=== PATIENT | male | born 1980 | race African-American/Black ===

== ENCOUNTER 2017-06-14 15:31 | Emergency (ER) | payer MEDICAID ==
[2017-06-14] MEDS ORDERED: ONDANSETRON 4 MG/2 ML VIAL IVP ONE (15:44)
[2017-06-14] MEDS ORDERED: NS 1,000 ML IV ONE (15:44)
[2017-06-14] MEDS ORDERED: HYDROmorphONE/DILAUDID 1 MG/ML SYR IVP ONE (15:44)
[2017-06-14 15:45] VITALS: RESP 16
--- NOTE | 2017-06-14 15:48 | EDPHY ---
H & P Stated Complaint: bug bites and abd tenderness. x3 days Time Seen by Provider: 06/14/17 15:40 HPI/ROS: CHIEF COMPLAINT: Abdominal pain HISTORY OF PRESENT ILLNESS: The patient is a otherwise healthy 37-year-old man who comes to the emergency department complaining of abdominal pain. He states that he 1st noticed a bug bite to his left flank and another 1 to his left side abdomen 3 days ago. He then developed left lower quadrant pain and swelling and erythema 2 days ago as well as fever. He denies any IV drug use or immuno compromising conditions. He does take oxycodone for chronic back pain. REVIEW OF SYSTEMS: Constitutional: denies: chills, fever, recent illness, recent injury EENTM: denies: blurred vision, double vision, nose congestion Respiratory: denies: cough, shortness of breath Cardiac: denies: chest pain, irregular heart rate, lightheadedness, palpitations Gastrointestinal/Abdominal: denies: abdominal pain, diarrhea, nausea, vomiting, blood streaked stools Genitourinary: denies: dysuria, frequency, hematuria, pain Musculoskeletal: denies: joint pain, muscle pain Skin: See HPI Neurological: denies: headache, numbness, paresthesia, tingling, dizziness, weakness Hematologic/Lymphatic: denies: blood clots, easy bleeding, easy bruising Immunologic/allergic: denies: HIV/AIDS, transplant EXAM: GENERAL: Mild distress, tearful HEAD: Atraumatic, normocephalic. EYES: Pupils equal round and reactive to light, extraocular movements intact, sclera anicteric, conjunctiva are normal. ENT: TMs normal, nares patent, oropharynx clear without exudates. Moist mucous membranes. NECK: Normal range of motion, supple without lymphadenopathy or JVD. LUNGS: Breath sounds clear to auscultation bilaterally and equal. No wheezes rales or rhonchi. HEART: Regular rate and rhythm without murmurs, rubs or gallops. ABDOMEN: Nontender except over cellulitic area BACK: No CVA tenderness, no spinal tenderness, step-offs or deformities EXTREMITIES: Normal range of motion, no pitting or edema. No clubbing or cyanosis. NEUROLOGICAL: Cranial nerves II through XII grossly intact. Normal speech, normal gait. 5/5 strength, normal movement in all extremities, normal sensation PSYCH: Normal mood, normal affect. SKIN: Draining abscess to left CVA and left flank and phlegmon versus abscess/ cellulitis left lower quadrant inguinal region that is very tender. Source: Patient Exam Limitations: No limitations - Personal History Current Tetanus Diphtheria and Acellular Pertussis (TDAP): Yes - Medical/Surgical History Hx Asthma: No Hx Chronic Respiratory Disease: No Hx Diabetes: No Hx Cardiac Disease: No Hx Renal Disease: No Other PMH: chronic pain. back and knee surg - Family History Significant Family History: No pertinent family hx - Social History Smoking Status: Current some day smoker Alcohol Use: Sober Drug Use: None Constitutional: Initial Vital Signs Temperature (C) 38.2 C 06/14/17 15:40 Heart Rate 99 06/14/17 15:40 Respiratory Rate 16 06/14/17 15:40 Blood Pressure 134/78 H 06/14/17 15:40 O2 Sat (%) 96 06/14/17 15:40 O2 Delivery Mode Room Air Allergies/Adverse Reactions: No Known Allergies Allergy (Unverified 06/14/17 15:42) Home Medications: Medication Instructions Recorded Oxycodone HCl ER 06/14/17 Medical Decision Making - Diagnostics Imaging Results: Imaging Impressions Abdomen CT 06/14/17 15:44 Impression: 1. Extensive cellulitis/phlegmon involving the deep subcutaneous soft tissues throughout the left side of the abdomen and pelvis anterolaterally without extension intra-abdominally or into the rectus abdominis muscles. 2. No drainable abscess. 3. Mild constipation. 4. No appendicitis, intra-abdominal fluid collection, hepatic abscess, urinary tract obstruction, or bowel obstruction. Findings and recommendations discussed with Emergency Department physician, Sergo Julio at 1730 hour, 06/14/2017. Final report concurs with initial preliminary interpretation. ED Course/Re-evaluation: 5:00 p.m. the patient refused CT scan and states that he is feeling better with antibiotics and wants to go home. I talked him into it. We discussed that he is septic and may have a deep space infection. 6:10 p.m. the patient is feeling much better. We discussed the CT results. The abscesses on his back and side have drained previously. He states that he has got pus out of them at home. We did send a swab of the ulcer . He has a phlegmon in his right lower abdomen/inguinal region. No fasciitis on CT scan. No crepitus on exam. Has fever has improved. I recommended admission strongly but the patient refuses. He states that he is very important meeting at 9:00 a.m. and will return after that for repeat vancomycin dosing or possibly admission. Differential Diagnosis: Partial list of the Differential diagnosis considered include but were not limited to; sepsis, cellulitis, phlegmon, abscess and although unlikely based on the history and physical exam, I also considered septic shock, fasciitis, intra-abdominal abscess, diverticulitis, hernia. I discussed these differential diagnoses and the plan with the patient as well as the usual and expected course. The patient understands that the diagnosis is provisional and that in medicine we are not always correct and that further workup is often warranted. Usual and customary warnings were given. All of the patient's questions were answered. The patient was instructed to return to the emergency department should the symptoms at all worsen or return, otherwise to followup with the physician as we discussed. - Data Points Laboratory Results: Laboratory Results 06/14/17 16:10 06/14/17 16:10 06/14/17 06/14/17 06/14/17 17:00 16:10 16:10 WBC RBC Hgb Hct MCV MCH MCHC RDW Plt Count MPV Neut % (Auto) Lymph % (Auto) [place] % (Auto) Eos % (Auto) Baso % (Auto) Nucleat RBC Rel Count Absolute Neuts (auto) Absolute Lymphs (auto) Absolute Monos (auto) Absolute Eos (auto) Absolute Basos (auto) Absolute Nucleated RBC Immature Gran % Immature Gran # PT 14.9 SEC SEC (12.0-15.0) INR 1.20 H (0.83-1.16) APTT 28.6 SEC SEC (23.0-38.0) VBG Lactic Acid Sodium 137 mEq/L mEq/L (134-144) Potassium 4.2 mEq/L mEq/L (3.5-5.2) Chloride 100 mEq/L mEq/L (97-110) Carbon Dioxide 24 mEq/l mEq/l (22-31) Anion Gap 13 mEq/L mEq/L (8-16) BUN 11 mg/dL mg/dL (7-23) Creatinine 1.0 mg/dL mg/dL (0.7-1.3) Estimated GFR > 60 Glucose 117 mg/dL H mg/dL (70-100) Calcium 9.0 mg/dL mg/dL (8.5-10.4) Total Bilirubin 0.9 mg/dL mg/dL (0.1-1.4) Conjugated Bilirubin 0.3 mg/dL mg/dL (0.0-0.5) Unconjugated Bilirubin 0.6 mg/dL mg/dL (0.0-1.1) AST 28 IU/L IU/L (17-59) ALT 32 IU/L IU/L (21-72) Alkaline Phosphatase 71 IU/L IU/L (38-126) Total Protein 6.8 g/dL g/dL (6.3-8.2) Albumin 3.8 g/dL g/dL (3.5-5.0) Lipase 25 IU/L IU/L (23-300) Urine Color YELLOW Urine Appearance HAZY Urine pH 6.0 (5.0-7.5) Ur Specific [place] 1.010 (1.002-1.030) Urine Protein NEGATIVE (NEGATIVE) Urine Ketones NEGATIVE (NEGATIVE) Urine Blood NEGATIVE (NEGATIVE) Urine Nitrate NEGATIVE (NEGATIVE) Urine Bilirubin NEGATIVE (NEGATIVE) Urine Urobilinogen 0.2 EU EU (0.2-1.0) Ur Leukocyte Esterase NEGATIVE (NEGATIVE) Urine Glucose NEGATIVE (NEGATIVE) 06/14/17 06/14/17 16:10 16:10 WBC 21.37 10^3/uL H 10^3/uL (3.80-9.50) RBC 6.02 10^6/uL 10^6/uL (4.40-6.38) Hgb 14.7 g/dL g/dL (13.7-17.5) Hct 43.2 % % (40.0-51.0) MCV 71.8 fL L fL (81.5-99.8) MCH 24.4 pg L pg (27.9-34.1) MCHC 34.0 g/dL g/dL (32.4-36.7) RDW 13.2 % % (11.5-15.2) Plt Count 225 10^3/uL 10^3/uL (150-400) MPV 10.0 fL fL (8.7-11.7) Neut % (Auto) 87.2 % H % (39.3-74.2) Lymph % (Auto) 5.8 % L % (15.0-45.0) [place] % (Auto) 6.2 % % (4.5-13.0) Eos % (Auto) 0.2 % L % (0.6-7.6) Baso % (Auto) 0.1 % L % (0.3-1.7) Nucleat RBC Rel Count 0.0 % % (0.0-0.2) Absolute Neuts (auto) 18.62 10^3/uL H 10^3/uL (1.70-6.50) Absolute Lymphs (auto) 1.24 10^3/uL 10^3/uL (1.00-3.00) Absolute Monos (auto) 1.32 10^3/uL H 10^3/uL (0.30-0.80) Absolute Eos (auto) 0.05 10^3/uL 10^3/uL (0.03-0.40) Absolute Basos (auto) 0.03 10^3/uL 10^3/uL (0.02-0.10) Absolute Nucleated RBC 0.00 10^3/uL 10^3/uL (0-0.01) Immature Gran % 0.5 % % (0.0-1.1) Immature Gran # 0.11 10^3/uL H 10^3/uL (0.00-0.10) PT INR APTT VBG Lactic Acid 1.2 mmol/L mmol/L (0.7-2.1) Sodium Potassium Chloride Carbon Dioxide Anion Gap BUN Creatinine Estimated GFR Glucose Calcium Total Bilirubin Conjugated Bilirubin Unconjugated Bilirubin AST ALT Alkaline Phosphatase Total Protein Albumin Lipase Urine Color Urine Appearance Urine pH Ur Specific [place] Urine Protein Urine Ketones Urine Blood Urine Nitrate Urine Bilirubin Urine Urobilinogen Ur Leukocyte Esterase Urine Glucose Medications Given: Discontinued Medications Acetaminophen (Tylenol) 1,000 mg PO EDNOW ONE Stop: 06/14/17 16:29 Last Admin: 06/14/17 16:44 Dose: 1,000 mg Hydromorphone HCl (Dilaudid) 1 mg IVP EDNOW ONE Stop: 06/14/17 15:45 Last Admin: 06/14/17 16:09 Dose: 1 mg Sodium Chloride (Ns) 1,000 mls @ 0 mls/hr IV EDNOW ONE; Wide Open PRN Reason: Protocol Stop: 06/14/17 15:45 Last Admin: 06/14/17 16:05 Dose: 1,000 mls Sodium Chloride (Ns) 2,200 mls @ 4,400 mls/hr 30 ml/kg infuse over 30 min ( 2200 ml) IV EDNOW ONE PRN Reason: Protocol Stop: 06/14/17 16:56 Last Admin: 06/14/17 16:43 Dose: 2,200 mls Vancomycin HCl 1 gm/ Sodium (Chloride) 250 mls @ 250 mls/hr IV EDNOW ONE PRN Reason: Protocol Stop: 06/14/17 17:27 Last Admin: 06/14/17 16:50 Dose: 250 mls Ondansetron HCl (Zofran) 4 mg IVP EDNOW ONE Stop: 06/14/17 15:45 Last Admin: 06/14/17 16:09 Dose: 4 mg Departure - Departure Disposition: Home, Routine, Self-Care Clinical Impression: Abscess Cellulitis Qualifiers: Site of cellulitis: trunk Site of cellulitis of trunk: abdominal wall Qualified Code(s): L03.311 - Cellulitis of abdominal wall Sepsis Qualifiers: Sepsis type: sepsis due to unspecified organism Qualified Code(s): A41.9 - Sepsis, unspecified organism Condition: Fair Instructions: Cellulitis (ED), Abscess (ED) Additional Instructions: You very serious skin infection. Return in 12 hours for repeat vancomycin dosing. If you feel worse or your fever is uncontrolled return immediately to the emergency department. Referrals: NONE *PRIMARY CARE P,. [Primary Care Provider] - As per Instructions Louise Simons DO [Doctor of Osteopathy] - As per Instructions ED,PHYSICIAN ONNOHEMY [Medical Doctor] - As per Instructions
[2017-06-14] MEDS ORDERED: IOPAMIDOL (ISOVUE-300) 100 ML BTL ONE (15:54)
[2017-06-14 16:20] LABS: % IMMATURE GRANULYOCYTES 0.5 % (0.0-1.1); ABSOLUTE IMMATURE GRANULOCYTES 0.11 10^3/uL (0.00-0.10); ADD DIFF? NO; ADD MORPH? NO; ADD SCAN? NO; ATYPICAL LYMPHOCYTE FLAG 0 (0-99); FRAGMENT RBC FLAG 0 (0-99); HEMATOCRIT 43.2 % (40.0-51.0); HEMOGLOBIN 14.7 g/dL (13.7-17.5); LEFT SHIFT FLG 10 (0-99); LIPEMIA HEMOLYSIS FLAG 90 (0-99); MEAN CELL HEMOGLOBIN 24.4 pg (27.9-34.1); MEAN CELL VOLUME 71.8 fL (81.5-99.8); PLATELET CLUMPS FLAG 0 (0-99); PLATELET COUNT 225 10^3/uL (150-400); RED BLOOD CELL COUNT 6.02 10^6/uL (4.40-6.38); RED CELL DISTRIBUTION WIDTH 13.2 % (11.5-15.2)
[2017-06-14] MEDS ORDERED: NS 2,200 ML IV ONE (16:27)
[2017-06-14] MEDS ORDERED: VANCOMYCIN 1 GM in NS 250 ML IV ONE (16:28)
[2017-06-14] MEDS ORDERED: ACETAMINOPHEN 500 MG TAB PO ONE (16:28)
[2017-06-14 16:34] LABS: APTT 28.6 SEC (23.0-38.0); INR 1.2 (0.83-1.16); PROTIME(PATIENT) 14.9 SEC (12.0-15.0)
[2017-06-14 16:36] LABS: ALANINE AMINOTRANSFERASE 32 IU/L (21-72); ALBUMIN 3.8 g/dL (3.5-5.0); ALKALINE PHOSPHATASE 71 IU/L (38-126); ANION GAP 13 mEq/L (8-16); ASPARTATE AMINOTRANSFERASE 28 IU/L (17-59); BILIRUBIN,TOTAL 0.9 mg/dL (0.1-1.4); BILIRUBIN-CONJUGATED 0.3 mg/dL (0.0-0.5); BILIRUBIN-UNCONJUGATED 0.6 mg/dL (0.0-1.1); CARBON DIOXIDE 24 mEq/l (22-31); CHLORIDE 100 mEq/L (97-110); GLOMERULAR FILTRATION RATE > 60; GLUCOSE 117 mg/dL (70-100); POTASSIUM 4.2 mEq/L (3.5-5.2); SODIUM 137 mEq/L (134-144); TOTAL PROTEIN 6.8 g/dL (6.3-8.2)
[2017-06-14 17:07] LABS: COLOR YELLOW; LEUKOCYTE ESTERASE,URINE NEGATIVE (NEGATIVE); NITRITE,URINE NEGATIVE (NEGATIVE)
[2017-06-14 17:57] VITALS: BP 108/58; PULSE 66; TEMP 99; O2SAT 98
== END 2017-06-14 18:34 | disposition home or self-care (01) ==
LOC: CED 15:31
DX: A41.9 Sepsis, unspecified organism (principal); L03.311 Cellulitis of abdominal wall; L02.211 Cutaneous abscess of abdominal wall; F17.200 Nicotine dependence, unspecified, uncomplicated; E86.9 Volume depletion, unspecified
CPT/HCPCS: 74177-PO; 80048-PO; 80076-PO; 81003-PO; 82247-PO; 83605-PO; 83690-PO; 85025-PO; 85610-PO; 85730-PO; 96365; J1170; J2405; J3370; Q9967

== ENCOUNTER 2017-06-15 09:30 | Emergency (ER) | payer MEDICAID ==
[2017-06-15 09:49] VITALS: RESP 18
--- NOTE | 2017-06-15 10:15 | EDPHY ---
H & P Stated Complaint: CELLULITIS WITH REPEAT ABX HPI/ROS: Chief Complaint: Cellulitis HPI: 36-year-old male who is seen emergency department yesterday afternoon with a very large cellulitis in his left lower abdominal wall/inguinal region. Patient had a CT scan at that time which did not show any fluid collections or deep space involvement. He received a dose of IV vancomycin was instructed to return for follow-up today. Patient was noted to have a significant elevation in his white cell count at that time but he refused admission as he had important meeting his this is this morning. Patient states he is feeling better and that feels like the swelling has gone down. ROS: 10 point Review of Systems is negative except as noted in the HPI. PMH: Denies Social History: No smoking, no alcohol, no recreational drug use Family History: non-contributory Physical Exam: Gen: Awake, Alert, No Distress HEENT: Nose: no rhinorrhea Eyes: PERRLA, EOMI Mouth: Moist mucosa Neck: Supple, no JVD Chest: nontender, lungs clear to auscultation Heart: S1, S2 normal, no murmur Abd: Soft, there is a large 15 x 20 area of cellulitis with induration but no fluctuance. There are also 2 lesions in the left lateral and left flank which are approximately 2 cm. Back: no CVA tenderness, no midline tenderness Ext: no edema, non-tender Skin: no rash Neuro: CN II-XII intact, Sensation grossly intact, Strength 5/5 in bilateral upper and lower extremities - Medical/Surgical History Hx Asthma: No Hx Chronic Respiratory Disease: No Hx Diabetes: No Hx Cardiac Disease: No Hx Renal Disease: No Other PMH: chronic pain. back and knee surg - Social History Smoking Status: Current some day smoker Constitutional: Initial Vital Signs Temperature (C) 37.1 C 06/15/17 09:47 Heart Rate 92 06/15/17 09:47 Respiratory Rate 18 06/15/17 09:47 Blood Pressure 140/76 H 06/15/17 09:47 O2 Sat (%) 92 06/15/17 09:47 O2 Delivery Mode Room Air Allergies/Adverse Reactions: No Known Allergies Allergy (Unverified 06/15/17 09:47) Home Medications: Medication Instructions Recorded Oxycodone HCl ER 06/14/17 Medical Decision Making ED Course/Re-evaluation: Have had a long conversation with the patient. He still does not want to be admitted to the hospital. He states that he is feeling better. He is not febrile and has normal vital signs here. He is agreed for additional doses of antibiotics. He would like to go home given another 12 hours to see if he improves. He assures me that he will return this evening for repeat antibiotics and reassessment. At that time he has not improved he will agree to be admitted to the hospital at this time he does not want to stay. The patient is not toxic appearing at this time. I have instructed him to return for any changes immediately. He has been given 1 g of IV vancomycin here. IV was left in place. - Data Points Medications Given: Vancomycin HCl 1 gm/ Sodium (Chloride) 250 mls @ 250 mls/hr IV EDNOW ONE PRN Reason: Protocol Stop: 06/15/17 11:31 Last Admin: 06/15/17 10:38 Dose: 250 mls Discontinued Medications Vancomycin/Sodium Chloride (Vancomycin 1 Gm (Premix)) 250 mls @ 250 mls/hr IV EDNOW ONE PRN Reason: Protocol Stop: 06/15/17 11:15 Last Admin: 06/15/17 10:34 Dose: Not Given Departure - Departure Disposition: Home, Routine, Self-Care Clinical Impression: Cellulitis Condition: Fair Instructions: Cellulitis (ED) Additional Instructions: Return to the emergency department in 12 hours for re-evaluation and repeat IV antibiotics. Return sooner for spreading of the redness in your abdomen, fevers, chills, weakness, or any other concerns.
[2017-06-15] MEDS ORDERED: VANCOMYCIN HCL/NORMAL SALINE 250 ML IV ONE (10:16)
[2017-06-15] MEDS ORDERED: VANCOMYCIN 1 GM/NS 250 ML BAG IV ONE (10:26)
[2017-06-15] MEDS ORDERED: VANCOMYCIN 1 GM VIAL ONE (10:27)
[2017-06-15] MEDS ORDERED: VANCOMYCIN 1 GM in NS 250 ML IV ONE (10:32)
[2017-06-15 11:54] VITALS: BP 130/70; PULSE 82; TEMP 98.6; O2SAT 98
== END 2017-06-15 11:57 | disposition home or self-care (01) ==
LOC: CED 09:30
DX: L03.311 Cellulitis of abdominal wall (principal); F17.200 Nicotine dependence, unspecified, uncomplicated
CPT/HCPCS: 96365; J3370

== ENCOUNTER 2017-06-15 23:00 | Observation (INO) | payer MEDICAID ==
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
[2017-06-16 00:15] LABS: % IMMATURE GRANULYOCYTES 0.5 % (0.0-1.1); ABSOLUTE IMMATURE GRANULOCYTES 0.08 10^3/uL (0.00-0.10); ADD DIFF? NO; ADD MORPH? NO; ADD SCAN? NO; ATYPICAL LYMPHOCYTE FLAG 10 (0-99); FRAGMENT RBC FLAG 0 (0-99); HEMATOCRIT 38.7 % (40.0-51.0); HEMOGLOBIN 13.2 g/dL (13.7-17.5); LEFT SHIFT FLG 0 (0-99); LIPEMIA HEMOLYSIS FLAG 90 (0-99); MEAN CELL HEMOGLOBIN 24.6 pg (27.9-34.1); MEAN CELL HEMOGLOBIN CONCENTR. 34.1 g/dL (32.4-36.7); MEAN CELL VOLUME 72.2 fL (81.5-99.8); MEAN PLATELET VOLUME 10.3 fL (8.7-11.7); PLATELET CLUMPS FLAG 0 (0-99); PLATELET COUNT 214 10^3/uL (150-400); RED BLOOD CELL COUNT 5.36 10^6/uL (4.40-6.38); RED CELL DISTRIBUTION WIDTH 13.2 % (11.5-15.2)
[2017-06-16] MEDS ORDERED: NS 1,000 ML IV SCH ×2 (00:15→03:00)
[2017-06-16 00:27] LABS: ANION GAP 14 mEq/L (8-16); CALCIUM 9.1 mg/dL (8.5-10.4); CARBON DIOXIDE 25 mEq/l (22-31); CHLORIDE 101 mEq/L (97-110); CREATININE 0.9 mg/dL (0.7-1.3); GLOMERULAR FILTRATION RATE > 60; GLUCOSE 128 mg/dL (70-100); POTASSIUM 4.1 mEq/L (3.5-5.2); SODIUM 140 mEq/L (134-144)
[2017-06-16] MEDS ORDERED: OXYCODONE/APAP 5/325 TAB PO ONE (00:34)
[2017-06-16] MEDS ORDERED: NS 2,400 ML IV ONE (00:35)
[2017-06-16] MEDS ORDERED: ONDANSETRON DISINTEGRATING 4 MG TAB PO PRN (02:46)
[2017-06-16] MEDS ORDERED: ACETAMINOPHEN 325 MG TAB PO PRN (02:46)
[2017-06-16] MEDS ORDERED: ONDANSETRON 4 MG/2 ML VIAL IVP PRN (02:46)
[2017-06-16] MEDS ORDERED: oxyCODONE IR 5 MG TAB PO PRN (02:46)
[2017-06-16] MEDS ORDERED: methylPREDNISolone SOD SUCC 125 MG/2 ML VIAL IVP ONE (03:24)
--- NOTE | 2017-06-16 03:49 | PDGENHP ---
History and Physical - Chief Complaint abdominal wall pain - History of Present Illness 36yo M who originally presented to the ED 2 nights ago with abd pain and cellulitis. At that time, had an elevated WNC to >20k, and a CT scan which showed phlegmon. He left to take care of some business affairs and then re- presented today as the induration had worsened. Denies any trauma, states his pain is currently well controlled. Denies fevers and chills today although he had them 24hrs ago History Information - Allergies/Home Medication List Allergies/Adverse Reactions: ceftriaxone Allergy (Verified 06/16/17 03:28) Home Medications: Oxycodone HCl ER 06/14/17 [Last Taken Unknown] I have personally reviewed and updated: family history, medical history, social history, surgical history - Past Medical History Additional medical history: chronic pain - Surgical History Additional surgical history: back surgery - Family History Positive for: non-pertinent - Social History Smoking Status: Current some day smoker Alcohol Use: None Drug Use: Marijuana (Formerly into Cocaine. Now only MJ 1-2 times a week. Uses the Oxycodone sparingly, 2-3 x per week.) Review of Systems ROS: 10pt was reviewed & negative except for what was stated in HPI & below Physical Exam Temp Pulse Resp BP Pulse Ox 36.5 C 98 18 108/77 93 06/16/17 03:25 06/16/17 03:25 06/16/17 03:25 06/16/17 03:25 06/16/17 03:25 Constitutional: uncomfortable Eyes: PERRL, anicteric sclera, EOMI Ears, Nose, Mouth, Throat: moist mucous membranes, hearing normal, ears appear normal, no oral mucosal ulcers Cardiovascular: regular rate and rhythym, no murmur, rub, or gallop, No edema Respiratory: no respiratory distress, no rales or rhonchi, clear to auscultation Gastrointestinal: normoactive bowel sounds, tenderness, other (large amt of cellulitis with central abscess on left lower abdominal wall ) Skin: other (cellulitis on abdomen ) Musculoskeletal: full muscle strength, no muscle tenderness, normal joint ROM, no joint effusions Neurologic: AAOx3 Psychiatric: interacting appropriately, not encephalopathic, thought process linear, anxious Lymph, Heme, Immunologic: no cervical LAD, no supraclavicular LAD Lab Data & Imaging Review 06/16/17 00:08 06/16/17 00:08 WBC 16.96 10^3/uL (3.80-9.50) H 06/16/17 00:08 RBC 5.36 10^6/uL (4.40-6.38) 06/16/17 00:08 Hgb 13.2 g/dL (13.7-17.5) L 06/16/17 00:08 Hct 38.7 % (40.0-51.0) L 06/16/17 00:08 MCV 72.2 fL (81.5-99.8) L 06/16/17 00:08 MCH 24.6 pg (27.9-34.1) L 06/16/17 00:08 MCHC 34.1 g/dL (32.4-36.7) 06/16/17 00:08 RDW 13.2 % (11.5-15.2) 06/16/17 00:08 Plt Count 214 10^3/uL (150-400) 06/16/17 00:08 MPV 10.3 fL (8.7-11.7) 06/16/17 00:08 Neut % (Auto) 84.9 % (39.3-74.2) H 06/16/17 00:08 Lymph % (Auto) 7.7 % (15.0-45.0) L 06/16/17 00:08 [place] % (Auto) 5.6 % (4.5-13.0) 06/16/17 00:08 Eos % (Auto) 1.1 % (0.6-7.6) 06/16/17 00:08 Baso % (Auto) 0.2 % (0.3-1.7) L 06/16/17 00:08 Nucleat RBC Rel Count 0.0 % (0.0-0.2) 06/16/17 00:08 Absolute Neuts (auto) 14.41 10^3/uL (1.70-6.50) H 06/16/17 00:08 Absolute Lymphs (auto) 1.31 10^3/uL (1.00-3.00) 06/16/17 00:08 Absolute Monos (auto) 0.95 10^3/uL (0.30-0.80) H 06/16/17 00:08 Absolute Eos (auto) 0.18 10^3/uL (0.03-0.40) 06/16/17 00:08 Absolute Basos (auto) 0.03 10^3/uL (0.02-0.10) 06/16/17 00:08 Absolute Nucleated RBC 0.00 10^3/uL (0-0.01) 06/16/17 00:08 Immature Gran % 0.5 % (0.0-1.1) 06/16/17 00:08 Immature Gran # 0.08 10^3/uL (0.00-0.10) 06/16/17 00:08 VBG Lactic Acid 1.7 mmol/L (0.7-2.1) D 06/16/17 00:08 Sodium 140 mEq/L (134-144) 06/16/17 00:08 Potassium 4.1 mEq/L (3.5-5.2) 06/16/17 00:08 Chloride 101 mEq/L (97-110) 06/16/17 00:08 Carbon Dioxide 25 mEq/l (22-31) 06/16/17 00:08 Anion Gap 14 mEq/L (8-16) 06/16/17 00:08 BUN 14 mg/dL (7-23) 06/16/17 00:08 Creatinine 0.9 mg/dL (0.7-1.3) 06/16/17 00:08 Estimated GFR > 60 06/16/17 00:08 Glucose 128 mg/dL (70-100) H 06/16/17 00:08 Calcium 9.1 mg/dL (8.5-10.4) 06/16/17 00:08 Visualized and Interpreted imaging results: Yes Interpretation: CT scan yesterday, images personally reviewed: phlegmon in L lower abdomen Assessment & Plan Assessment: Abscess of abdominal wall (Acute) Furunculosis (Acute) Hidradenitis suppurativa (Acute) MSSA (methicillin susceptible Staphylococcus aureus) (Acute) SIRS (systemic inflammatory response syndrome) (Acute) Sepsis affecting skin (Acute) Plan: 36yo M c LL abdomen abscess - Discussed with the patient that the area will not heal appropriately with antibiotics alone. Will plan to proceed to the OR for source control and to drain the area. RBA discussed.
--- NOTE | 2017-06-16 03:55 | GHP ---
[f rep st] HISTORY AND PHYSICAL DATE OF ADMISSION: 06/16/2017 CHIEF COMPLAINT: Cellulitis. HISTORY OF PRESENT ILLNESS: This is a 36-year-old man who [place] [facility] [place] nal pain. He had maybe had a bug bite a few days before this which became more painful and had some erythema. He had also had some fevers. He denies any history of immunocompromise, including diabe belkis. CT scan then showed likely phlegmon with no drainable abscess. He was offered admission to [facility], though refused. He had been seen at the emergency department the next morning for an in fusion of vancomycin. Then, returned later that evening and was then agreeable to admission. He is , thus, admitted to the hospital. He [place] [facility] [place] He is now complaining of a full-body rash. PAST MEDICAL/SURGICAL HISTORY: 1. Chronic pain, on continuous narcotics. 2. Back and knee surgery. MEDICATIONS: Please see medication reconciliation. ALLERGIES: We will need to list an allergy to Rocephin. SOCIAL HISTORY: He does not drink ever. He used to smoke a pack a day. He is now smoking about 1 cigarette every other day. FAMILY HISTORY: Reviewed and noncontributory. REVIEW OF SYSTEMS: A 10-point review of systems is conducted and is negative, except per HPI. PHYSICAL EXAMINATION: VITAL SIGNS: Blood pressure 119/63, heart rate 84, respiration rate 18, satt ing at 93% on room air, temperature is 37.1. GENERAL: The patient is a pleasant man who is somewha t uncomfortable, somewhat anxious, resting in bed. HEENT: Show him to be normocephalic, atraumatic . CARDIOVASCULAR: Shows him to have a regular rate and rhythm. No murmurs, rubs, or gallops. PUL MONARY: Shows lungs clear to auscultation bilaterally. ABDOMEN: Shows his left lower quadrant to have significant erythema which has receded from markings drawn [place] [facility] [place] It is significantly indurat ed with a small area of fluctuance. SKIN: Shows him to have a diffuse maculopapular rash mostly on his trunk and proximal extremities. : Shows no Sanchez. NEUROLOGIC: Shows him to be alert and o riented x3. He is moving all extremities. PSYCHIATRIC: Shows a normal mood and affect. LABORATORY DATA: White count is 17,000 with a left shift. Basic metabolic panel is normal, althoug h glucose is mildly elevated. Hemoglobin is 13.2, MCV is 72.2. DATA: 1. I discussed with Dr. Pierson, as well as Dr. Choi. 2. I reviewed his abdominal CT scan which showed a phlegmon, left lower quadrant. IMPRESSION AND PLAN: A 36-year-old man with left lower quadrant cellulitis and abscess. 1. Left abdominal wall cellulitis, abscess: He will go to the operating room tonight. Culture fro m an abscess in his back which did not seem to be connected to this abscess grew out methicillin-sen sitive Staphylococcus aureus. He received Rocephin at Urgent Care and now has a full-body rash. He denies any problems with vancomycin. Because of this, I will continue vancomycin for now, we will follow up operative cultures, Infectious Disease has been consulted, given the more complicated anti biotic scheme. 2. Sepsis due to abdominal wall cellulitis: He received bolus in the emergency department. He is clinically stable currently. He has no evidence of end-organ damage or hypotension. 3. Allergic reaction: As above. 4. Microcytic anemia: Likely predates any of these acute issues. He could have this worked up as an outpatient. /[id number]/MODL
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
[2017-06-16] MEDS ORDERED: ONDANSETRON 4 MG/2 ML VIAL ONE (04:22)
[2017-06-16] MEDS ORDERED: DEXAMETHASONE 4 MG/ML VIAL ONE (04:22)
[2017-06-16] MEDS ORDERED: LIDOCAINE 2% 100 MG/5 ML SYR ONE (04:22)
[2017-06-16] MEDS ORDERED: PROPOFOL/EMULSION 500 MG/50 ML BOTTLE IV ONE (04:23)
[2017-06-16] MEDS ORDERED: LIDOCAINE 2% JELLY 5 ML TUBE ONE (04:26)
[2017-06-16] MEDS: VANCOMYCIN 1.25 GM in D5W 250 ML IV SCH ×2 (04:45→15:45)
[2017-06-16] MEDS ORDERED: BUPIVACAINE/EPI 0.25% 30 ML SDV ONE (04:45)
--- NOTE | 2017-06-16 05:05 | POSTOPPROG ---
Post Op Note Date of Operation: 06/16/17 Surgeon: Mor Choi Anesthesiologist: Tejas Anesthesia: LMA Pre-op Diagnosis: abdominal wall abscess Post-op Diagnosis: same Procedure: incision and drainage abdominal wall abscess Findings: large cavity, superficial to fascia Inf/Abcess present in the surg proc area at time of surgery?: Yes Depth: Superfical (Skin SQ) EBL: Minimal Total fluids administered: 1000cc sterile saline Specimen(s): cultures taken
--- NOTE | 2017-06-16 05:32 | POSTANESTH ---
Post Anesthetic Evaluation Cardiovascular Status: Normal, Stable Respiratory Status: Normal, Stable Level of Consciousness/Mental Status: Mildly Sleepy, Arousable Pain Control: Adequate, Prn Tx Ordered Nausea/Vomiting Control: Adequate, Prn Tx Ordered Complications Possibly Related to Anesthesia: None Noted
--- NOTE | 2017-06-16 06:51 | GOP ---
[f rep st] OPERATIVE REPORT DATE OF OPERATION: 06/16/2017 SURGEON: Mor Choi MD SPRAY DRIER: None. ANESTHESIA: General endotracheal. ANESTHESIOLOGIST: Valerio Lazaro MD. PREOPERATIVE DIAGNOSIS: Left lower quadrant anterior abdominal wall abscess. POSTOPERATIVE DIAGNOSIS: Left lower quadrant anterior abdominal wall abscess. PROCEDURE PERFORMED: Incision and drainage of abdominal wall abscess. FINDINGS: Large 5 x 3 cm abscess deep to the skin, superficial to fascia with purulent, foul-smelling fluid, successfully drained. SPECIMENS: cultures taken. DESCRIPTION OF PROCEDURE: The patient was greeted in the preoperative suite. Once again, risks, benefits, and alternatives were discussed. The consent was signed. He was then brought back to the operative suite, placed on the OR table in a supine position. After all anesthesia machines, including SCDs, were on and functioning, a [employer] time-out was performed. After successful induction of general anesthesia, the patient's abdomen was prepped and draped in typical sterile fashion. I made a horizontal incision over the area of the greatest induration. Just deep to this, I encountered purulent fluid, cultures of which were taken. I then increased my incision to approximately 2.5 cm total, and irrigated and cleaned out the entire cavity. I irrigated with 1 L sterile saline and achieved hemostasis with gentle pressure. I then gently debrided the cavity [place] and then instilled local anesthesia into the skin and underlying muscle. Again, the cavity did not probe deep to the fascia and remained superficial. I packed it with 1 inch iodoform gauze over which a sterile dressing was placed. The patient was then extubated in the operative suite and taken to the PACU in satisfactory condition. COUNTS: All counts were reported as correct x2. /[id number]/MODL MTDD
--- NOTE | 2017-06-16 09:41 | HOSPPROG ---
Hospitalist Progress Note Assessment/Plan: * abdominal wall abscess * Status post drainage * Await identification and sensitivities - probably MSSA * Continue vancomycin for now * Really wants to go home tomorrow - will last surgery whether wound care follow -up will versus following up with surgeon for wound care would be preferred * chronic pain * microcytic anemia * ? Sickle cell trait Subjective: Really wants leave AMA due to job concerns Objective: Vital Signs Temp Pulse Resp BP Pulse Ox 36.4 C 74 16 122/65 H 96 06/16/17 09:00 06/16/17 09:00 06/16/17 09:00 06/16/17 09:00 06/16/17 09:00 06/15/17 06/16/17 06/17/17 05:59 05:59 05:59 Intake Total 4300 Output Total 25 Balance 4275 - Physical Exam Constitutional: no apparent distress, appears nourished, not in pain Eyes: anicteric sclera, EOMI Ears, Nose, Mouth, Throat: moist mucous membranes Cardiovascular: regular rate and rhythym Respiratory: no respiratory distress, no rales or rhonchi, clear to auscultation Skin: other (Lower abdomen incision with packing and surrounding erythema) Neurologic: AAOx3, other (Little groggy after surgery) ICD10 Worksheet Patient Problems: Problems Problem Status Onset Abscess of abdominal wall Acute Furunculosis Acute Hidradenitis suppurativa Acute MSSA (methicillin susceptible Staphylococcus aureus) Acute SIRS (systemic inflammatory response syndrome) Acute Sepsis affecting skin Acute
[2017-06-16 16:13] VITALS: BP 130/61; PULSE 59; RESP 18; TEMP 98.2; O2SAT 92
== END 2017-06-16 18:05 | disposition home or self-care (01) ==
LOC: CED 23:00 → CEDHOLD 06-16 01:18 → F3E 06-16 02:59
PROVIDERS: ADMIT Student in an Organized Health Care Education/Training Program; ATTEND Internal Medicine
PROC: 3E03329 Introduction of Other Anti-infective into Peripheral Vein, Percutaneous Approach (ICD-10-PCS; 2017-06-16)
PROC: 3E0337Z Introduction of Electrolytic and Water Balance Substance into Peripheral Vein, Percutaneous Approach (ICD-10-PCS; 2017-06-16)
PROC: 0J980ZZ Drainage of Abdomen Subcutaneous Tissue and Fascia, Open Approach (ICD-10-PCS; principal; 2017-06-16 04:15)
DX: A41.9 Sepsis, unspecified organism (principal); L03.311 Cellulitis of abdominal wall; B95.62 Methicillin resistant Staphylococcus aureus infection as the cause of diseases classified elsewhere; L02.221 Furuncle of abdominal wall; R21 Rash and other nonspecific skin eruption; L73.2 Hidradenitis suppurativa; T36.1X5A Adverse effect of cephalosporins and other beta-lactam antibiotics, initial encounter; D64.9 Anemia, unspecified; E86.9 Volume depletion, unspecified; F17.200 Nicotine dependence, unspecified, uncomplicated; G89.29 Other chronic pain; Z79.891 Long term (current) use of opiate analgesic
CPT/HCPCS: 10060; 96361; 96365; 99285; G0378; 80048-PO; 83605-PO; 85025-PO; J0696; J1100; J1200; J2001; J2405; J2704; J3370

== ENCOUNTER 2017-06-17 00:45 | Emergency (ER) | payer MEDICAID ==
[2017-06-17 00:54] VITALS: RESP 16; TEMP 98.2
[2017-06-17] MEDS ORDERED: DOXYCYCLINE HYCLATE 100 MG CAP/TAB PO ONE (01:13)
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
[2017-06-17 02:16] LABS: % IMMATURE GRANULYOCYTES 0.6 % (0.0-1.1); ABSOLUTE IMMATURE GRANULOCYTES 0.11 10^3/uL (0.00-0.10); ADD DIFF? NO; ADD MORPH? NO; ADD SCAN? NO; ATYPICAL LYMPHOCYTE FLAG 10 (0-99); FRAGMENT RBC FLAG 0 (0-99); HEMATOCRIT 38.9 % (40.0-51.0); HEMOGLOBIN 13.4 g/dL (13.7-17.5); LEFT SHIFT FLG 0 (0-99); LIPEMIA HEMOLYSIS FLAG 90 (0-99); MEAN CELL HEMOGLOBIN 25.1 pg (27.9-34.1); MEAN CELL HEMOGLOBIN CONCENTR. 34.4 g/dL (32.4-36.7); MEAN PLATELET VOLUME 10.8 fL (8.7-11.7); PLATELET CLUMPS FLAG 0 (0-99); PLATELET COUNT 246 10^3/uL (150-400); RED BLOOD CELL COUNT 5.33 10^6/uL (4.40-6.38); RED CELL DISTRIBUTION WIDTH 13.2 % (11.5-15.2)
[2017-06-17 02:25] LABS: ANION GAP 16 mEq/L (8-16); CALCIUM 9.9 mg/dL (8.5-10.4); CARBON DIOXIDE 24 mEq/l (22-31); CHLORIDE 101 mEq/L (97-110); CREATININE 0.8 mg/dL (0.7-1.3); GLOMERULAR FILTRATION RATE > 60; GLUCOSE 104 mg/dL (70-100); POTASSIUM 4.2 mEq/L (3.5-5.2); SODIUM 141 mEq/L (134-144)
[2017-06-17 02:59] VITALS: BP 118/67; PULSE 97; O2SAT 99
== END 2017-06-17 02:59 | disposition home or self-care (01) ==
DX: L02.211 Cutaneous abscess of abdominal wall (principal); F17.200 Nicotine dependence, unspecified, uncomplicated

== ENCOUNTER 2017-07-06 09:02 | Inpatient (IN) | payer MEDICAID ==
[2017-07-06] MEDS ORDERED: NALOXONE HCL 0.4 MG/ML INJ ONE (09:11)
[2017-07-06] MEDS ORDERED: NS 1,000 ML IV ONE ×2 (09:14→09:50)
[2017-07-06] MEDS ORDERED: NALOXONE HCL 0.4 MG/ML INJ IVP ONE ×4 (09:14→09:58)
--- NOTE | 2017-07-06 09:17 | CPEKG ---
Heart Rate: 85 RR Interval: 706 P-R Interval: 116 QRSD Interval: 82 QT Interval: 356 QTC Interval: 424 P Lincoln: 87 QRS Lincoln: 88 T Wave Lincoln: 55 EKG Severity - ABNORMAL ECG - EKG Impression: SINUS RHYTHM EKG Impression: RIGHT ATRIAL ABNORMALITY Electronically Signed By: Leland Larson 08-Jul-2017 07:28:52
[2017-07-06 09:27] LABS: % IMMATURE GRANULYOCYTES 0.3 % (0.0-1.1); ABSOLUTE IMMATURE GRANULOCYTES 0.04 10^3/uL (0.00-0.10); ADD DIFF? NO; HEMATOCRIT 48.8 % (40.0-51.0); HEMOGLOBIN 16.6 g/dL (13.7-17.5); MEAN CELL HEMOGLOBIN 24.5 pg (27.9-34.1); MEAN CELL VOLUME 72.1 fL (81.5-99.8); MEAN PLATELET VOLUME 10.8 fL (8.7-11.7); PLATELET COUNT 255 10^3/uL (150-400); RED BLOOD CELL COUNT 6.77 10^6/uL (4.40-6.38); RED CELL DISTRIBUTION WIDTH 14.5 % (11.5-15.2)
[2017-07-06 09:28] LABS: ADD MORPH? NO; ADD SCAN? NO; ATYPICAL LYMPHOCYTE FLAG 0 (0-99); FRAGMENT RBC FLAG 0 (0-99); LEFT SHIFT FLG 0 (0-99); LIPEMIA HEMOLYSIS FLAG 90 (0-99); PLATELET CLUMPS FLAG 0 (0-99)
[2017-07-06 09:34] LABS: ANION GAP 15 mEq/L (8-16); CARBON DIOXIDE 27 mEq/l (22-31); CHLORIDE 101 mEq/L (97-110); GLOMERULAR FILTRATION RATE > 60; GLUCOSE 111 mg/dL (70-100); POTASSIUM 4.3 mEq/L (3.5-5.2); SODIUM 143 mEq/L (134-144)
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
[2017-07-06 10:51] LABS: ALBUMIN 4.7 g/dL (3.5-5.0); BILIRUBIN-CONJUGATED 0.6 mg/dL (0.0-0.5); BILIRUBIN-UNCONJUGATED 0.4 mg/dL (0.0-1.1); TOTAL PROTEIN 8.1 g/dL (6.3-8.2)
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
[2017-07-06] MEDS ORDERED: ONDANSETRON DISINTEGRATING 4 MG TAB PO PRN (14:45)
[2017-07-06] MEDS ORDERED: ONDANSETRON 4 MG/2 ML VIAL IVP PRN (14:45)
--- NOTE | 2017-07-06 16:10 | HOSPPROG ---
Hospitalist Progress Note Assessment/Plan: Called by nursing staff/ patient down on the floor/ he is unable to tell me if he hit his head/ I heard a loud 'thump' while walking by/ will get a CT of his head for safety. Also, spoke with Dr Bowie; patient would benefit from step down ICU/ high risk of withdrawals. Subjective: Reinier is unable to tell me anything about hurting anywhere. Objective: Vital Signs Temp Pulse Resp BP Pulse Ox 36.6 C 48 L 15 130/86 H 99 07/06/17 14:39 07/06/17 14:39 07/06/17 14:39 07/06/17 14:39 07/06/17 14:39 07/05/17 07/06/17 07/07/17 05:59 05:59 05:59 Intake Total 1000 Balance 1000 ICD10 Worksheet Patient Problems: Problems Problem Status Onset Altered mental status Acute Fall Acute Narcotic abuse Acute Orbital fracture Acute Abscess of abdominal wall Acute Furunculosis Acute Hidradenitis suppurativa Acute MRSA (methicillin resistant Staphylococcus aureus) Acute ~06/16/17 MSSA (methicillin susceptible Staphylococcus aureus) Acute SIRS (systemic inflammatory response syndrome) Acute Sepsis affecting skin Acute
--- NOTE | 2017-07-06 16:42 | ASMTCMCOM ---
CM Note CM Note Notes: Pt was admitted after an apparent fall at home - his girlfriend found him at the bottom of the stairs. He has AMS and orbital bone fx. Pt has a hx of opiate dependence and MRSA (from an abdominal wall abscess). Pt was found down in his room this afternoon and could not provide reason - sent for CT. Pt may transfer to ICU 2/2 his high risk of withdrawal. Unable to meet with him because of his confusion. CM will follow for any d/c needs. Date Signed: 07/06/2017 04:41 PM Electronically Signed By:Robyn Dougherty
[2017-07-06] MEDS ORDERED: LORazepam 2 MG/ML INJ IVP PRN ×2 (17:02)
[2017-07-06] MEDS ORDERED: DEXMEDETOMIDINE HCL 400 MCG in NS 100 ML IV SCH (17:30)
[2017-07-06] MEDS ORDERED: ALTEPLASE 2 MG VIAL IVP PRN (17:31)
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
[2017-07-06] MEDS: NS 1,000 ML IV SCH (20:21)
[2017-07-06] MEDS: FAMOTIDINE 20 MG/NACL 50 ML IV SCH (20:31)
[2017-07-06 21:26] LABS: CK-MB INTERPRETATION NEGATIVE (NEGATIVE); CREATINE KINASE-MB FRACTION 1.37 ng/mL (0.00-3.19)
[2017-07-06 21:37] LABS: CK-MB INTERPRETATION NEGATIVE (NEGATIVE)
[2017-07-06] MEDS: ACETAMINOPHEN 325 MG TAB PO PRN (23:40)
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
[2017-07-07] MEDS: NS 1,000 ML IV SCH ×2 (04:42→14:17)
[2017-07-07 06:04] LABS: % IMMATURE GRANULYOCYTES 0.4 % (0.0-1.1); ABSOLUTE IMMATURE GRANULOCYTES 0.05 10^3/uL (0.00-0.10); ADD DIFF? NO; ADD MORPH? NO; ADD SCAN? NO; ATYPICAL LYMPHOCYTE FLAG 0 (0-99); FRAGMENT RBC FLAG 0 (0-99); HEMATOCRIT 42.3 % (40.0-51.0); HEMOGLOBIN 14.5 g/dL (13.7-17.5); LEFT SHIFT FLG 0 (0-99); LIPEMIA HEMOLYSIS FLAG 90 (0-99); MEAN CELL HEMOGLOBIN 25.1 pg (27.9-34.1); MEAN CELL HEMOGLOBIN CONCENTR. 34.3 g/dL (32.4-36.7); MEAN CELL VOLUME 73.3 fL (81.5-99.8); PLATELET CLUMPS FLAG 0 (0-99); PLATELET COUNT 193 10^3/uL (150-400); RED BLOOD CELL COUNT 5.77 10^6/uL (4.40-6.38)
[2017-07-07 06:19] LABS: ANION GAP 7 mEq/L (8-16); CALCIUM 9.6 mg/dL (8.5-10.4); CARBON DIOXIDE 25 mEq/l (22-31); CHLORIDE 106 mEq/L (97-110); CREATININE 0.8 mg/dL (0.7-1.3); GLOMERULAR FILTRATION RATE > 60; GLUCOSE 98 mg/dL (70-100); MAGNESIUM 2.1 mg/dL (1.6-2.3); POTASSIUM 3.9 mEq/L (3.5-5.2); SODIUM 138 mEq/L (134-144)
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
--- NOTE | 2017-07-07 09:22 | SOAPPROG ---
SOAP Progress Note Assessment/Plan: Reviewed scans with coronal view with Dr. Charles. Agree with yesterday's assessment that no operative intervention is required. At this time, ENT will sign off. Please call with any further questions or concerns. Dr. Charles's full consult note to follow. Objective: Vital Signs Temp Pulse Resp BP Pulse Ox 36.6 C 57 L 17 132/80 H 100 07/07/17 07:47 07/07/17 07:47 07/07/17 07:47 07/07/17 07:47 07/07/17 07:47 Laboratory Results 07/07/17 05:50 07/07/17 05:50 07/06/17 07/07/17 07/08/17 05:59 05:59 05:59 Intake Total 2134 Output Total 950 Balance 1184 ICD10 Worksheet Patient Problems: Problems Problem Status Onset Altered mental status, unspecified Acute Closed tripod fracture of zygomaticomaxillary complex Acute Drug abuse, amphetamine type Acute Drug abuse, cocaine type Acute Uses marijuana Acute Abscess of abdominal wall Acute Furunculosis Acute Hidradenitis suppurativa Acute MRSA (methicillin resistant Staphylococcus aureus) Acute ~06/16/17 MSSA (methicillin susceptible Staphylococcus aureus) Acute SIRS (systemic inflammatory response syndrome) Acute Sepsis affecting skin Acute
[2017-07-07] MEDS: FAMOTIDINE 20 MG/NACL 50 ML IV SCH ×2 (09:24→20:05)
[2017-07-07] MEDS: THIAMINE HCL 100 MG TAB PO SCH (09:34)
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
--- NOTE | 2017-07-07 11:54 | ASMTCMCOM ---
CM Note CM Note Notes: PT ordered. Awaiting recommendations to make d/c plan. CAGE to be completed when patient is able. CM will follow. Date Signed: 07/07/2017 11:53 AM Electronically Signed By:Aster Haas LCSW
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
[2017-07-08 01:27] LABS: COLOR YELLOW; LEUKOCYTE ESTERASE,URINE NEGATIVE (NEGATIVE); NITRITE,URINE NEGATIVE (NEGATIVE)
[2017-07-08 06:11] LABS: % IMMATURE GRANULYOCYTES 0.2 % (0.0-1.1); ABSOLUTE IMMATURE GRANULOCYTES 0.02 10^3/uL (0.00-0.10); ADD DIFF? NO; ADD MORPH? NO; ADD SCAN? NO; ATYPICAL LYMPHOCYTE FLAG 0 (0-99); FRAGMENT RBC FLAG 0 (0-99); HEMATOCRIT 38.2 % (40.0-51.0); HEMOGLOBIN 12.9 g/dL (13.7-17.5); LEFT SHIFT FLG 0 (0-99); LIPEMIA HEMOLYSIS FLAG 90 (0-99); MEAN CELL HEMOGLOBIN 24.9 pg (27.9-34.1); MEAN CELL HEMOGLOBIN CONCENTR. 33.8 g/dL (32.4-36.7); MEAN CELL VOLUME 73.7 fL (81.5-99.8); MEAN PLATELET VOLUME 10.6 fL (8.7-11.7); PLATELET CLUMPS FLAG 0 (0-99); PLATELET COUNT 170 10^3/uL (150-400); RED BLOOD CELL COUNT 5.18 10^6/uL (4.40-6.38)
[2017-07-08 06:42] LABS: MAGNESIUM 1.8 mg/dL (1.6-2.3)
[2017-07-08] MEDS: FAMOTIDINE 20 MG/NACL 50 ML IV SCH ×2 (09:16→21:04)
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
[2017-07-08] MEDS: THIAMINE HCL 100 MG TAB PO SCH (11:59)
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
[2017-07-08] MEDS ORDERED: LORazepam 2 MG/ML INJ IVP PRN (16:06)
[2017-07-08] MEDS: ACETAMINOPHEN 325 MG TAB PO PRN (21:05)
[2017-07-09 05:04] LABS: % IMMATURE GRANULYOCYTES 0.3 % (0.0-1.1); ABSOLUTE IMMATURE GRANULOCYTES 0.04 10^3/uL (0.00-0.10); ADD DIFF? NO; ADD MORPH? NO; ADD SCAN? NO; ATYPICAL LYMPHOCYTE FLAG 10 (0-99); FRAGMENT RBC FLAG 0 (0-99); HEMOGLOBIN 13.5 g/dL (13.7-17.5); LEFT SHIFT FLG 0 (0-99); LIPEMIA HEMOLYSIS FLAG 90 (0-99); MEAN CELL HEMOGLOBIN CONCENTR. 33.8 g/dL (32.4-36.7); MEAN CELL VOLUME 74.1 fL (81.5-99.8); MEAN PLATELET VOLUME 10.7 fL (8.7-11.7); PLATELET CLUMPS FLAG 10 (0-99); PLATELET COUNT 170 10^3/uL (150-400); RED CELL DISTRIBUTION WIDTH 14.2 % (11.5-15.2)
[2017-07-09 05:27] LABS: MAGNESIUM 1.8 mg/dL (1.6-2.3)
[2017-07-09] MEDS ORDERED: DOXYCYCLINE HYCLATE 100 MG CAP/TAB PO SCH (09:00)
[2017-07-09] MEDS: FAMOTIDINE 20 MG/NACL 50 ML IV SCH (10:29)
[2017-07-09] MEDS: NS 1,000 ML IV SCH (10:35)
[2017-07-09 11:57] VITALS: O2SAT 96
[2017-07-09 15:56] VITALS: BP 129/65; PULSE 64; RESP 23; TEMP 97.9
--- NOTE | 2017-07-09 16:18 | ASMTCMCOM ---
CM Note CM Note Notes: Pt transferred to 3 from ICU. Per RN Rosanna pt is still confused, is in [place], [place]. OT rec home vs home w 24/hr sup, PT rec home w 24/hr sup vs. outpatient and [employer] rec home w 24/hr supervision. Due to confusion this CM did not meet w pt to determine if he is able to have a 24/hr supervision plan. CM to follow. Of note: While previous case management note indicates CAGE required, it is the SBIRT which needs to be completed as pt was not able to participate in SBIRT screening when he arrived in ED. This was confirmed w CM home health manager Zach Alejandra. Date Signed: 07/09/2017 04:18 PM Electronically Signed By:SADIA Miles
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
== END 2017-07-09 17:47 | disposition home or self-care (01) | DRG 917 ==
LOC: CED 09:02 → EEVIPCON 11:15 → OBSVTOIN 11:15 → F3N 14:27 → F2N 16:57 → F3N 07-08 16:50
PROVIDERS: ADMIT Internal Medicine; ATTEND Student in an Organized Health Care Education/Training Program
PROC: 02HV33Z Insertion of Infusion Device into Superior Vena Cava, Percutaneous Approach (ICD-10-PCS; principal; 2017-07-06)
DX: T43.621A Poisoning by amphetamines, accidental (unintentional), initial encounter (principal); T42.4X1A Poisoning by benzodiazepines, accidental (unintentional), initial encounter; T40.5X1A Poisoning by cocaine, accidental (unintentional), initial encounter; T40.7X1A Poisoning by cannabis (derivatives), accidental (unintentional), initial encounter; G92 Toxic encephalopathy; S02.40EA Zygomatic fracture, right side, initial encounter for closed fracture; S02.81XA Fracture of other specified skull and facial bones, right side, initial encounter for closed fracture; S02.40CA Maxillary fracture, right side, initial encounter for closed fracture; W10.9XXA Fall (on) (from) unspecified stairs and steps, initial encounter; Y92.018 Other place in single-family (private) house as the place of occurrence of the external cause; G89.29 Other chronic pain; D72.829 Elevated white blood cell count, unspecified; F14.10 Cocaine abuse, uncomplicated; F12.10 Cannabis abuse, uncomplicated; R49.0 Dysphonia; Z79.891 Long term (current) use of opiate analgesic
CPT/HCPCS: 70450-PO; 71010-PO; 72125-PO; 80048-PO; 80076-PO; 80307-PO; 82553-PO; 82947-QW; 83605-PO; 84481-90; 85025-PO; 92523-GN; 92526-GN; 92610-GN; 96374; 97116-GP; 97162-GP; 97165-GO; 97532-GO; 97535-GO; C1751; J2060; J2310